=== PATIENT | female | born 1980 | race Caucasian/White ===

== ENCOUNTER → 2019-10-31 | Outpatient (CLI) | payer OTHER ==
--- NOTE | 2019-10-31 19:31 | CONS ---
CONSULTATION REASON FOR CONSULTATION: This is a consultation note for sleep apnea. HISTORY OF PRESENT ILLNESS: This is a 39-year-old female patient who has been told by her and family members that she snores and she quits breathing at night. 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 She is tired all the time and she has been having issues with tiredness and sleepiness. She is also having issues with losing weight. Her is pretty sure that she stops breathing at night time. The patient has been going to bed around midnight waking up at 7:30 a.m. in the morning. She has excessive fatigue and sleepiness and tiredness during the day. She grinds her teeth and wakes up with dry mouth. On weekends, she wakes up 9:00 am in the morning. Weight is fluctuating essentially up and she is unable to lose weight. Overall she has gained around 90 pounds since high school years. Pixley score 13. No sleep paralysis, hallucinations or cataplexy. PAST MEDICAL HISTORY: Obesity and hypertension. PAST SURGICAL HISTORY: D&C. DRUG ALLERGIES: Are not known. OUTPATIENT MEDICATIONS: None other than Women's vitamin. SOCIAL HISTORY: Nonsmoker. No history of alcohol. No history of IV drugs. FAMILY HISTORY: Negative for sleep apnea. Family history positive for diabetes mellitus, and hypothyroidism. Family history is also positive for hypertension. REVIEW OF SYSTEMS: Fourteen-point review of system was done. Positive findings are mentioned in history of present illness. No nocturnal dyspnea, chest pain, heartburn, shortness of breath or any morning headaches. PHYSICAL EXAMINATION: VITAL SIGNS: BP is 170/100, pulse is 90. Respirations 16, temperature 97.8. Height is 5 feet 10 inches, weight is 241. Neck size 16 inches and Pixley score 13. BMI is 40.7, and saturation 97% on room air. GENERAL APPEARANCE: Calm, and comfortable. HEENT: Head is atraumatic, normocephalic. NECK: Supple. No JVD. No goiter or neck masses. Mallampati class IV. LUNGS: Clear to auscultation. HEART: Heart sounds are regular rate and rhythm. Normal S1, S2. No S3, S4. No murmurs. ABDOMEN: Soft, nontender. No organomegaly. EXTREMITIES: No edema. No cyanosis or clubbing. NEUROLOGIC: Awake and alert. There are no focal neurological deficits. PSYCHIATRIC: Negative for anxiety or depression. IMPRESSION: 1. Hypersomnia with high clinical suspicion for obstructive sleep apnea. The Pixley Score is 13. 2. Obesity BMI of 40.7. 3. Hypertension. 4. Poorly controlled blood pressure. PLAN: 1. Refer the patient back to primary care regarding blood pressure control. 2. Encourage weight loss. 3. Proceed with a polysomnogram to evaluate this patient for obstructive sleep apnea and proceed accordingly. 4. The patient is trying to establish herself with a new primary care physician. She will let me know. Appropriate paperwork will be forwarded to primary care physician accordingly. VARUNL / WARRENN: [id number] /
== END | disposition home or self-care (01) ==
LOC: SLEEP 13:23
PROVIDERS: ATTEND Internal Medicine Critical Care Medicine
DX: G47.10 Hypersomnia, unspecified (principal); I10 Essential (primary) hypertension; E66.9 Obesity, unspecified; Z68.41 Body mass index [BMI] 40.0-44.9, adult
CPT/HCPCS: 99201

== ENCOUNTER → 2021-03-11 | Outpatient (CLI) | payer OTHER ==
--- NOTE | 2021-03-11 18:25 | SFUN ---
SLEEP CENTER FOLLOW UP NOTE A 40-year-old female patient coming in for an annual check regarding obstructive sleep apnea. The patient is a CPAP user and the patient has a diagnosis of moderate to severe MAULIK with an AHI of 24, worse during REM sleep. She has done very well on her CPAP and she is still on a pressure of 13 cm of water. Over the past one year, the patient has gained around 25 pounds. Despite that the pressure of 13 has been effective and adequate to treat this patient. The patient has been averaging around 7.2 hours of CPAP use per night. Leak of 7 L/minute and AHI is down to 0.4. Her CPAP use for more than 4 hours is above 95%. Burgaw score is at 3. No new complaints. Blood pressure is high and she was asked to follow up with the primary care physician in that regard. She has not taken her COVID-19 vaccination. REVIEW OF SYSTEMS: Fourteen-point review of system was done. Positive for weight gain as mentioned. PHYSICAL EXAMINATION: BP is 187/109, pulse 87, respirations 12, temperature 97.3, saturation is 99% on room air. Burgaw score is a 3. Weight is 266. GENERAL APPEARANCE: Calm and comfortable. Head atraumatic, normocephalic. NECK: Supple. No JVD. No goiter or neck masses. Mallampati class 4. LUNGS: Lungs diminished otherwise clear. HEART: Heart sounds are regular rate and rhythm. Normal S1/S2. No S3. No murmurs. ABDOMEN: Soft, nontender, no organomegaly. EXTREMITIES: No edema. No cyanosis or clubbing. IMPRESSION: 1. Obstructive sleep apnea with an AHI of 24, currently on CPAP at a pressure of 13 with excellent clinical response and compliance. 2. Obesity with interval weight gain. Weight is up to 266. 3. Hypersomnia, recovered. Burgaw score is down to 3. PLAN: 1. Continue CPAP therapy with same level of pressure. 2. Continue same mask interface. 3. Encourage weight loss. 4. Implement good sleep hygiene measures. 5. Follow up with the primary care physician regarding elevated blood pressure. 6. See me in followup in a few years. MMODL / IJN: [id number] /
== END ==
LOC: SLEEP 15:10
PROVIDERS: ATTEND Internal Medicine Critical Care Medicine
DX: G47.33 Obstructive sleep apnea (adult) (pediatric) (principal); E66.9 Obesity, unspecified; Z68.26 Body mass index [BMI] 26.0-26.9, adult; Z99.89 Dependence on other enabling machines and devices

== ENCOUNTER → 2022-05-05 | Outpatient (CLI) | payer OTHER ==
--- NOTE | 2022-05-05 14:49 | P.PN ---
Subjective Progress Note Date: 05/05/22 This is a 41-year-old female patient who has obstructive sleep apnea and the patient is coming in to see me for an annual check regarding MAULIK. The patient is known to have moderate to severe disease in the patient's previous sleep study indicated an AHI of 24 consistent with moderately severe disease and the patient had worsening of her condition during REM sleep. The patient remains on CPAP therapy at a pressure of 13 cm of water. She will remain successful. The patient is very compliant to CPAP machine and the patient is using the machine every night without interruption. I checked her compliance data on the machine and the patient using the machine 100% of the time and she is achieving more than 4 hours all the time. She is averaging about 7 hours of CPAP use per night endoleak is no order of 11 L per minute and her AHI is down to 1.0. She is using the Brevida SX_S mask for now. Her weight has remained stable. No hypersomnia and sleepiness during the day. Of significance is her ongoing elevation of blood pressure and I may choose to warn this patient out for ongoing blood pressure which remains elevated and this was noted even during her last evaluation. I do not see that she is on any form of antihypertensive medication she is to follow-up with her primary care physician. Misha otherwise doing well. No complaints. 4 status post also. No hypersomnia and sleepiness during the day. Objective - Exam Blood pressure is 181/137, pulse is 76, respiration is 16, temperature is 97.4 and the weight is 267. Her current Basin score is at 4 with a body mass index of 45. The patient appeared well nourished and normally developed. Vital signs as documented. Head exam is unremarkable. No scleral icterus or corneal arcus noted. Neck is without jugular venous distension, thyromegaly, or carotid bruits. Carotid upstrokes are brisk bilaterally. Lungs are clear to auscultation and percussion. Cardiac exam reveals the PMI to be normally sized and situated. Rhythm is regular. First and second heart sounds normal. No murmurs, rubs or gallops. Abdominal exam reveals normal bowel sounds, no masses, no organomegaly and no aortic enlargement. Extremities are nonedematous and both femoral and pedal pulses are normal.Examination of the skin revealed no evidence of significant rashes, suspicious appearing nevi or other concerning lesions.Neurologically, the patient is awake and alert and the patient does not have any focal neurological deficit. Cranial nerves are essentially intact. Assessment and Plan Plan: Obstructive sleep apnea with an AHI of 24 consistent with mild associated disease. The patient continues to diffusely successful treatment with a CPAP pressure of 13 cm of water Hypertension, poorly controlled, needs immediate attention to her primary care Obesity with a stable weight in the body mass index is 45 with a weight of 267 Hypersomnia recovered Plan Continue CPAP therapy the same level of pressure of 13 cm of water. Keep the same mask interface. She was successful. Encourage weight loss. Immediate attention with her primary care physician for blood pressure control and she was made aware of that. I'll see her back in my office in 2 years time. Her sleep hygiene measures are good. She has no other active issues for now.
== END ==
LOC: SLEEP 13:39
PROVIDERS: ATTEND Internal Medicine Critical Care Medicine
DX: G47.33 Obstructive sleep apnea (adult) (pediatric) (principal); Z99.89 Dependence on other enabling machines and devices; E66.9 Obesity, unspecified; I10 Essential (primary) hypertension; Z68.42 Body mass index [BMI] 45.0-49.9, adult